=== PATIENT | female | born 1975 | race Caucasian/White ===

== ENCOUNTER 2018-03-22 22:54 | Emergency (ER) | payer MEDICAID ==
--- NOTE | 2018-03-22 23:28 | ED Physician Documentation ---
PD HPI MHE - Stated complaint Stated Complaint: SUICIDAL - Chief complaint Chief Complaint: MHE - History obtained from History obtained from: Patient - History of Present Illness Primary symptom: Suicidal ideation, Depression, Anxiety, Off meds Timing - onset: Today Contributing factors: Off meds Similar symptoms before: Work up / diagnostics, Treatment Recently seen: Not recently seen - Additional information Additional information: Patient is a 43 year female with a history of anxiety and depression who is presenting to the emergency for depression and agitation. Patient is visting her mother from out of state and quit taking all of her medications 4 days ago cold turkey. Patient states that she feels agitated an unsafe and does not know what she would do to herself. Review of Systems Ten Systems: 10 systems reviewed and negative Psychiatric: reports: Depressed, Suicidal, Hallucinations, Anxiety PD PAST MEDICAL HISTORY - Present Medications Home Medications: Ambulatory Orders Medication Instructions Recorded Confirmed Aripiprazole [Abilify] 20 mg PO DAILY 03/22/18 03/22/18 Fluoxetine HCl 40 mg PO DAILY 03/22/18 03/22/18 [place] Carbonate 300 mg PO QDBREAKFAST 03/22/18 03/22/18 [place] Carbonate 600 mg PO QPM 03/22/18 03/22/18 Topiramate [Topamax] 25 mg PO BID 03/22/18 03/22/18 buPROPion [Wellbutrin Sr] 100 mg PO DAILY 03/22/18 03/22/18 cloNIDine [Catapres] 1 tab PO DAILY 03/22/18 03/22/18 traZODone [Desyrel] 50 mg PO HS 03/22/18 03/22/18 Prazosin HCl 1 mg PO DAILY PM #14 capsule 03/23/18 - Allergies Allergies/Adverse Reactions: Allergies Allergy/AdvReac Type Severity Reaction Status Date / Time No Known Drug Allergies Allergy Verified 03/22/18 23:02 PD ED PE NORMAL - Vitals Vital signs reviewed: Yes - General General: Alert and oriented X 3, Well developed/nourished - HEENT HEENT: Atraumatic, PERRL - Cardiac Cardiac: RRR - Respiratory Respiratory: No respiratory distress - Abdomen Abdomen: Non distended - Derm Derm: Normal color, Warm and dry - Extremities Extremities: No deformity - Neuro Neuro: Alert and oriented X 3, No motor deficit, Normal speech Eye Opening: Spontaneous Motor: Obeys Commands PD ED PE EXPANDED - Psych Psych: Depressed, Suicidal, Anxious Results - Vitals Vitals: Vital Signs - 24 hr 03/22/18 22:56 Temperature 36.7 C Heart Rate 69 Respiratory 20 Rate Blood Pressure 133/77 H O2 Saturation 98 Oxygen O2 Source Room air - Labs Labs: Laboratory Tests 03/22/18 03/22/18 03/22/18 23:13 23:13 23:46 WBC 7.1 RBC 3.84 L Hgb 12.1 Hct 36.2 L MCV 94.3 MCH 31.6 H MCHC 33.6 RDW 15.2 H Plt Count 292 MPV 7.7 L Neut # (Auto) 3.6 Lymph # (Auto) 2.5 [place] # (Auto) 0.6 Eos # (Auto) 0.3 Baso # (Auto) 0.0 Absolute Nucleated RBC 0.00 Nucleated RBC % 0.0 Sodium Potassium Chloride Carbon Dioxide Anion Gap BUN Creatinine Estimated GFR (MDRD) Glucose Calcium Total Bilirubin AST ALT Alkaline Phosphatase Total Protein Albumin Globulin Albumin/Globulin Ratio Lipase TSH Urine Color YELLOW Urine Clarity CLEAR Urine pH 5.5 Ur Specific [place] >=1.030 H Urine Protein NEGATIVE Urine Glucose (UA) NEGATIVE Urine Ketones NEGATIVE Urine Occult Blood TRACE-LYSE Urine Nitrite NEGATIVE Urine Bilirubin NEGATIVE Urine Urobilinogen 0.2 (NORMAL) Ur Leukocyte Esterase NEGATIVE Ur Microscopic Review NOT INDICATED Urine Culture Comments NOT INDICATED Urine HCG, Qual NEGATIVE Urine Opiates Screen NEGATIVE Ur Oxycodone Screen NEGATIVE Urine Methadone Screen NEGATIVE Ur Propoxyphene Screen NEGATIVE Ur Barbiturates Screen NEGATIVE Ur Tricyclics Screen NEGATIVE Ur Phencyclidine Scrn NEGATIVE Ur Amphetamine Screen NEGATIVE U Methamphetamines Scrn NEGATIVE U Benzodiazepines Scrn NEGATIVE [place] Urine Cocaine Screen NEGATIVE U Cannabinoids Screen NEGATIVE Ethyl Alcohol 03/22/18 03/22/18 03/22/18 23:46 23:46 23:46 WBC RBC Hgb Hct MCV MCH MCHC RDW Plt Count MPV Neut # (Auto) Lymph # (Auto) [place] # (Auto) Eos # (Auto) Baso # (Auto) Absolute Nucleated RBC Nucleated RBC % Sodium 137 Potassium 4.0 Chloride 106 Carbon Dioxide 24 Anion Gap 7.0 BUN 21 H Creatinine 0.8 Estimated GFR (MDRD) 79 L Glucose 123 H Calcium 8.9 Total Bilirubin 0.2 AST 19 ALT 19 Alkaline Phosphatase 35 L Total Protein 5.8 L Albumin 3.5 Globulin 2.3 Albumin/Globulin Ratio 1.5 Lipase 31 TSH 3.45 Urine Color Urine Clarity Urine pH Ur Specific [place] Urine Protein Urine Glucose (UA) Urine Ketones Urine Occult Blood Urine Nitrite Urine Bilirubin Urine Urobilinogen Ur Leukocyte Esterase Ur Microscopic Review Urine Culture Comments Urine HCG, Qual Urine Opiates Screen Ur Oxycodone Screen Urine Methadone Screen Ur Propoxyphene Screen Ur Barbiturates Screen Ur Tricyclics Screen Ur Phencyclidine Scrn Ur Amphetamine Screen U Methamphetamines Scrn U Benzodiazepines Scrn [place] < 0.05 Urine Cocaine Screen U Cannabinoids Screen Ethyl Alcohol < 5.0 PD MEDICAL DECISION MAKING - ED course Complexity details: reviewed old records, reviewed results, re-evaluated patient , considered differential, d/w patient, d/w integrity consultant ED course: Patient was seen and examined at bedside. labs were drawn and urine was collected. telepsych consult was ordered. patient was evaluated by Dr. Spencer who recommended that the patient be admitted inpatient and to change the dosing of the medications to lithium 300 qam and 600qhs, Prozac 20mg, abilfy 15mgqe and prazosin 1mg qhs and stopping the clonidine and trazadone. Patient was otherwise medically clear. Patient was voluntary and was signed over to Dr. Jewell pending social work evaluation. - Sepsis Event Vital Signs: Vital Signs - 24 hr 03/22/18 22:56 Temperature 36.7 C Heart Rate 69 Respiratory 20 Rate Blood Pressure 133/77 H O2 Saturation 98 Oxygen O2 Source Room air Departure - Departure Clinical Impression: Bipolar affective, manic, unspec, Suicidal ideation, Borderline personality disorder Condition: Stable Prescriptions: Prazosin HCl 1 mg PO DAILY PM #14 capsule
[2018-03-22 23:31] LABS: MUDS CUTOFF CONCENTRATIONS CUTOFF CONC BELOW:
[2018-03-22 23:40] LABS: BILIRUBIN,URINE NEGATIVE (NEGATIVE); GLUCOSE, URINE (UA) NEGATIVE (NEGATIVE); KETONES,URINE (UA) NEGATIVE (NEGATIVE); LEUKOCYTE ESTERASE, URINE NEGATIVE (NEGATIVE); NITRITE,URINE NEGATIVE (NEGATIVE); OCCULT BLOOD,URINE TRACE-LYSE (NEGATIVE); PH,URINE 5.5 PH (5.0-7.5); PROTEIN,URINE NEGATIVE (NEGATIVE); UROBILINOGEN,URINE 0.2 (NORMAL) E.U./dL (NORMAL)
[2018-03-22 23:47] LABS: CLARITY,URINE CLEAR (CLEAR); HCG UR QUAL NEGATIVE
[2018-03-22 23:56] LABS: BASOPHILS % (AUTO) 0.7 %; EOSINOPHILS # (AUTO) 0.3 10^3/uL (0.0-0.7); EOSINOPHILS % (AUTO) 4.9 %; HGB - HEMOGLOBIN 12.1 g/dL (12.0-16.0); LYMPHOCYTES # (AUTO) 2.5 10^3/uL (1.5-3.5); LYMPHOCYTES % (AUTO) 35.7 %; MEAN CORPUSCULAR HEMOGLOBIN 31.6 pg (27.0-31.0); MEAN CORPUSCULAR HGB CONC 33.6 g/dL (32.0-36.0); MEAN CORPUSCULAR VOLUME 94.3 fL (81.0-99.0); MEAN PLATELET VOLUME 7.7 fL (7.9-10.8); MONOCYTES # (AUTO) 0.6 10^3/uL (0.0-1.0); MONOCYTES % (AUTO) 8.3 %; NEUTROPHILS # (AUTO) 3.6 10^3/uL (1.5-6.6); NEUTROPHILS % (AUTO) 50.4 %; PLT - PLATELET COUNT 292 10^3/uL (130-450); RED BLOOD COUNT 3.84 10^6/uL (4.20-5.40); RED CELL DISTRIBUTION WIDTH 15.2 % (12.0-15.0); WHITE BLOOD COUNT 7.1 x10^3/uL (4.8-10.8)
[2018-03-23] LABS: AMPHETAMINE SCREEN,URINE NEGATIVE (NEGATIVE); BENZODIAZEPINES SCREEN, URINE NEGATIVE (NEGATIVE); COCAINE SCREEN URINE NEGATIVE (NEGATIVE); METHADONE SCREEN, URINE NEGATIVE (NEGATIVE); METHAMPHETAMINES SCREEN, URINE NEGATIVE (NEGATIVE); OPIATE SCREEN, URINE NEGATIVE (NEGATIVE); OXYCODONE SCREEN, URINE NEGATIVE (NEGATIVE); PROPOXYPHENE SCREEN, URINE NEGATIVE (NEGATIVE); TRICYCLIC ANTIDEPRESSANT,URINE NEGATIVE (NEGATIVE)
[2018-03-23 00:09] LABS: ALBUMIN 3.5 g/dL (3.2-5.5); ALBUMIN/GLOBULIN RATIO 1.5 (1.0-2.2); ALKALINE PHOSPHATASE 35 IU/L (42-121); ALT ALANINE AMINOTRANSFERASE 19 IU/L (10-60); AST ASPARTATE AMINOTRANSFERASE 19 IU/L (10-42); BILIRUBIN,TOTAL 0.2 mg/dL (0.2-1.0); BUN - BLOOD UREA NITROGEN 21 mg/dL (6-20); CALCIUM 8.9 mg/dL (8.5-10.3); CARBON DIOXIDE - CO2 24 mmol/L (21-32); CHLORIDE 106 mmol/L (101-111); CREATININE 0.8 mg/dL (0.4-1.0); GFR - MDRD 79 (>89); GLUCOSE 123 mg/dL (70-100); LIPASE 31 U/L (22-51); SODIUM 137 mmol/L (135-145); TOTAL PROTEIN 5.8 g/dL (6.7-8.2)
[2018-03-23 00:48] LABS: LITHIUM < 0.05 mmol/L
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
[2018-03-23] MEDS ORDERED: LORazepam 0.5 MG TABLET PO STA (02:58)
[2018-03-23 07:41] VITALS: BP 111/77
--- NOTE | 2018-03-23 12:15 | ED Physician Documentation ---
ED Addendum - Addendum Addendum: 03/23/18 12:15 Assumed care at change of shift. The patient did not have any particular complaints new from the prior evaluation. Social work saw her and was able to arrange hospitalization for the patient. The patient is agreeable to this. [facility] will come to transfer the patient. [facility] said they could not take her prior to 4 PM.
== END 2018-03-23 16:22 ==
LOC: ED 22:54
DX: F30.9 Manic episode, unspecified (principal); R45.851 Suicidal ideations; F60.3 Borderline personality disorder; F43.10 Post-traumatic stress disorder, unspecified; F19.11 Other psychoactive substance abuse, in remission; Z81.8 Family history of other mental and behavioral disorders
CPT/HCPCS: 36415; 80053; 80178; 80306; 80320; 81003; 81025; 83690; 84443; 85025; 99284; 99285; A9270; G0426; Q3014; 81001; 87086; 99283

== ENCOUNTER 2018-06-30 07:36 | Emergency (ER) | payer MEDICAID ==
[2018-06-30 08:08] VITALS: BP 132/89
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
--- NOTE | 2018-06-30 08:21 | ED Physician Documentation ---
PD HPI MHE - Stated complaint Stated Complaint: SHAKING/CANT SLEEP - Chief complaint Chief Complaint: General - History obtained from History obtained from: Patient, Friend - History of Present Illness Primary symptom: Manic Timing - onset: How many weeks ago (1) Contributing factors: Family Similar symptoms before: Diagnosis (yariel) Recently seen: Not recently seen - Additional information Additional information: 43-year-old female with a history of bipolar affect disorder has acute yariel over the past week. She has been able to sleep she has racing thoughts and she denies any current suicidal ideation. She has been hospitalized more than 10 times previously and she has recently completed inpatient alcohol treatment and she states she is 2 months sober. She is living with a family friend for the past 2 weeks and he indicates that she had a bit of a rough night last night being awake all night. He does not think that she has had any problems prior to that that he is aware of. The patient states that she was supposed to go back to [place] to home to see her children ages 9 and 20 and she was unable to do this as she was "too spun up ". She denies any current alcohol use states that previously she has had an issue with cocaine as well. Review of Systems Constitutional: denies: Fever Eyes: denies: Decreased vision Ears: denies: Ear pain Nose: denies: Congestion Throat: denies: Oral lesions / sores, Sore throat Cardiac: denies: Chest pain / pressure, Palpitations Respiratory: denies: Dyspnea, Cough GI: denies: Abdominal Pain, Nausea, Vomiting : denies: Dysuria, Frequency Skin: denies: Rash Musculoskeletal: denies: Neck pain, Back pain, Extremity pain Neurologic: denies: Generalized weakness, Focal weakness, Numbness, Difficulty speaking Psychiatric: reports: Insomnia PD PAST MEDICAL HISTORY - Past Medical History Cardiovascular: None Respiratory: None Neuro: Migraines Endocrine/Autoimmune: None GI: None 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 : None HEENT: None Psych: Depression, Anxiety, Bipolar disorder, Panic attacks Musculoskeletal: None Derm: None - Past Surgical History Past Surgical History: No - Present Medications Home Medications: Ambulatory Orders Medication Instructions Recorded Confirmed Aripiprazole [Abilify] 20 mg PO DAILY 03/22/18 06/30/18 RX: Fluoxetine HCl 20 mg PO DAILY 03/22/18 06/30/18 RX: [place] Carbonate 300 mg PO QDBREAKFAST 03/22/18 06/30/18 RX: [place] Carbonate 600 mg PO QPM 03/22/18 06/30/18 RX: QUEtiapine [SEROquel] 25 mg DAILY 06/30/18 06/30/18 hydrOXYzine HCl [Hydroxyzine HCl] 1 tab TID PRN 06/30/18 06/30/18 - Allergies Allergies/Adverse Reactions: Allergies Allergy/AdvReac Type Severity Reaction Status Date / Time No Known Drug Allergies Allergy Verified 06/30/18 08:07 - Social History Does the pt smoke?: Yes Smoking Status: Current every day smoker Does the pt drink ETOH?: No Does the pt have substance abuse?: Yes - Immunizations Immunizations are current?: Yes - POLST Patient has POLST: No PD ED PE NORMAL - Vitals Vital signs reviewed: Yes (diastolic hypertension ) - General General: Alert and oriented X 3, No acute distress, Well developed/nourished - HEENT HEENT: Atraumatic, PERRL, EOMI, Ears normal, Moist mucous membranes, Pharynx benign, Dentition benign - Neck Neck: Supple, no meningeal sign, No bony TTP - Cardiac Cardiac: RRR, No murmur - Respiratory Respiratory: No respiratory distress, Clear bilaterally - Abdomen Abdomen: Soft, Non tender - Back Back: No CVA TTP, No spinal TTP - Derm Derm: Normal color, Warm and dry, No rash - Extremities Extremities: No deformity, No edema - Neuro Neuro: Alert and oriented X 3, events traffic controller 2-12 intact, No motor deficit, No sensory deficit, Normal speech Eye Opening: Spontaneous Motor: Obeys Commands Verbal: Oriented GCS Score: 15 - Psych Psych: Normal mood, Normal affect Results - Vitals Vitals: Vital Signs - 24 hr 06/30/18 08:00 Temperature 36.3 C L Heart Rate 86 Respiratory 16 Rate Blood Pressure 132/89 H O2 Saturation 100 Oxygen O2 Source Room air - Labs Labs: Laboratory Tests 06/30/18 06/30/18 06/30/18 08:43 08:43 08:43 WBC 7.9 RBC 4.36 Hgb 13.5 Hct 39.8 MCV 91.3 MCH 31.1 H MCHC 34.1 RDW 14.8 Plt Count 343 MPV 7.8 L Neut # (Auto) 5.2 Lymph # (Auto) 1.9 [place] # (Auto) 0.5 Eos # (Auto) 0.3 Baso # (Auto) 0.1 Absolute Nucleated RBC 0.00 Nucleated RBC % 0.0 Sodium 137 Potassium 3.9 Chloride 104 Carbon Dioxide 25 Anion Gap 8.0 BUN 10 Creatinine 0.9 Estimated GFR (MDRD) 69 L Glucose 99 Calcium 9.4 Total Bilirubin 0.4 AST 19 ALT 15 Alkaline Phosphatase 36 L Total Protein 7.6 Albumin 4.4 Globulin 3.2 Albumin/Globulin Ratio 1.4 Lipase 33 TSH 3.66 Urine Color Urine Clarity Urine pH Ur Specific [place] Urine Protein Urine Glucose (UA) Urine Ketones Urine Occult Blood Urine Nitrite Urine Bilirubin Urine Urobilinogen Ur Leukocyte Esterase Ur Microscopic Review Urine Culture Comments Urine HCG, Qual Urine Opiates Screen Ur Oxycodone Screen Urine Methadone Screen Ur Propoxyphene Screen Ur Barbiturates Screen Ur Tricyclics Screen Ur Phencyclidine Scrn Ur Amphetamine Screen U Methamphetamines Scrn U Benzodiazepines Scrn Urine Cocaine Screen U Cannabinoids Screen Ethyl Alcohol < 5.0 06/30/18 06/30/18 09:30 09:30 WBC RBC Hgb Hct MCV MCH MCHC RDW Plt Count MPV Neut # (Auto) Lymph # (Auto) [place] # (Auto) Eos # (Auto) Baso # (Auto) Absolute Nucleated RBC Nucleated RBC % Sodium Potassium Chloride Carbon Dioxide Anion Gap BUN Creatinine Estimated GFR (MDRD) Glucose Calcium Total Bilirubin AST ALT Alkaline Phosphatase Total Protein Albumin Globulin Albumin/Globulin Ratio Lipase TSH Urine Color LIGHT YELLOW Urine Clarity CLEAR Urine pH 7.0 Ur Specific [place] <=1.005 Urine Protein NEGATIVE Urine Glucose (UA) NEGATIVE Urine Ketones NEGATIVE Urine Occult Blood NEGATIVE Urine Nitrite NEGATIVE Urine Bilirubin NEGATIVE Urine Urobilinogen 0.2 (NORMAL) Ur Leukocyte Esterase NEGATIVE Ur Microscopic Review NOT INDICATED Urine Culture Comments NOT INDICATED Urine HCG, Qual NEGATIVE Urine Opiates Screen NEGATIVE Ur Oxycodone Screen NEGATIVE Urine Methadone Screen NEGATIVE Ur Propoxyphene Screen NEGATIVE Ur Barbiturates Screen NEGATIVE Ur Tricyclics Screen NEGATIVE Ur Phencyclidine Scrn NEGATIVE Ur Amphetamine Screen NEGATIVE U Methamphetamines Scrn NEGATIVE U Benzodiazepines Scrn NEGATIVE Urine Cocaine Screen NEGATIVE U Cannabinoids Screen NEGATIVE Ethyl Alcohol PD MEDICAL DECISION MAKING - ED course Complexity details: considered differential ED course: This patient eloped without explanation. Departure - Departure Disposition: ED [place] Discharge Date/Time: 06/30/18 09:44
[2018-06-30 08:50] LABS: BASOPHILS # (AUTO) 0.1 10^3/uL (0.0-0.1); BASOPHILS % (AUTO) 0.8 %; EOSINOPHILS # (AUTO) 0.3 10^3/uL (0.0-0.7); EOSINOPHILS % (AUTO) 3.6 %; HGB - HEMOGLOBIN 13.5 g/dL (12.0-16.0); LYMPHOCYTES # (AUTO) 1.9 10^3/uL (1.5-3.5); MEAN CORPUSCULAR HEMOGLOBIN 31.1 pg (27.0-31.0); MEAN CORPUSCULAR HGB CONC 34.1 g/dL (32.0-36.0); MEAN CORPUSCULAR VOLUME 91.3 fL (81.0-99.0); MEAN PLATELET VOLUME 7.8 fL (7.9-10.8); MONOCYTES # (AUTO) 0.5 10^3/uL (0.0-1.0); MONOCYTES % (AUTO) 5.8 %; NEUTROPHILS # (AUTO) 5.2 10^3/uL (1.5-6.6); NEUTROPHILS % (AUTO) 65.8 %; PLT - PLATELET COUNT 343 10^3/uL (130-450); RED BLOOD COUNT 4.36 10^6/uL (4.20-5.40); RED CELL DISTRIBUTION WIDTH 14.8 % (12.0-15.0); WHITE BLOOD COUNT 7.9 x10^3/uL (4.8-10.8)
[2018-06-30 09:04] LABS: ALBUMIN 4.4 g/dL (3.2-5.5); ALBUMIN/GLOBULIN RATIO 1.4 (1.0-2.2); ALKALINE PHOSPHATASE 36 IU/L (42-121); ALT ALANINE AMINOTRANSFERASE 15 IU/L (10-60); AST ASPARTATE AMINOTRANSFERASE 19 IU/L (10-42); BILIRUBIN,TOTAL 0.4 mg/dL (0.2-1.0); BUN - BLOOD UREA NITROGEN 10 mg/dL (6-20); CALCIUM 9.4 mg/dL (8.5-10.3); CARBON DIOXIDE - CO2 25 mmol/L (21-32); CHLORIDE 104 mmol/L (101-111); CREATININE 0.9 mg/dL (0.4-1.0); GFR - MDRD 69 (>89); GLUCOSE 99 mg/dL (70-100); LIPASE 33 U/L (22-51); SODIUM 137 mmol/L (135-145); TOTAL PROTEIN 7.6 g/dL (6.7-8.2)
[2018-06-30 09:49] LABS: MUDS CUTOFF CONCENTRATIONS CUTOFF CONC BELOW:
[2018-06-30 09:51] LABS: BILIRUBIN,URINE NEGATIVE (NEGATIVE); GLUCOSE, URINE (UA) NEGATIVE (NEGATIVE); KETONES,URINE (UA) NEGATIVE (NEGATIVE); LEUKOCYTE ESTERASE, URINE NEGATIVE (NEGATIVE); NITRITE,URINE NEGATIVE (NEGATIVE); OCCULT BLOOD,URINE NEGATIVE (NEGATIVE); PROTEIN,URINE NEGATIVE (NEGATIVE); UROBILINOGEN,URINE 0.2 (NORMAL) E.U./dL (NORMAL)
[2018-06-30 09:53] LABS: CLARITY,URINE CLEAR (CLEAR); HCG UR QUAL NEGATIVE
[2018-06-30 10:02] LABS: AMPHETAMINE SCREEN,URINE NEGATIVE (NEGATIVE); BENZODIAZEPINES SCREEN, URINE NEGATIVE (NEGATIVE); COCAINE SCREEN URINE NEGATIVE (NEGATIVE); METHADONE SCREEN, URINE NEGATIVE (NEGATIVE); METHAMPHETAMINES SCREEN, URINE NEGATIVE (NEGATIVE); OPIATE SCREEN, URINE NEGATIVE (NEGATIVE); OXYCODONE SCREEN, URINE NEGATIVE (NEGATIVE); PROPOXYPHENE SCREEN, URINE NEGATIVE (NEGATIVE); TRICYCLIC ANTIDEPRESSANT,URINE NEGATIVE (NEGATIVE)
== END 2018-06-30 09:44 | disposition left against medical advice (07) ==
LOC: ED 07:36
DX: F31.9 Bipolar disorder, unspecified (principal); G47.00 Insomnia, unspecified; F17.200 Nicotine dependence, unspecified, uncomplicated
CPT/HCPCS: 36415; 80053; 80306; 80320; 81001; 81003; 81025; 83690; 84443; 85025; 87086; 99282; 99283

== ENCOUNTER 2019-06-04 17:27 | Outpatient (CLI) | payer MEDICARE, MEDICAID | END 2019-06-04 23:59 | disposition home or self-care (01) | LOC: LAB.R 17:27 | PROVIDERS: ATTEND Physician Assistant Medical | DX: J02.9 Acute pharyngitis, unspecified (principal) | CPT/HCPCS: 87070 ==

== ENCOUNTER 2019-06-11 08:00 | Outpatient (CLI) | payer MEDICARE, MEDICAID | END 2019-06-11 23:59 | disposition home or self-care (01) | LOC: LAB.WC 08:00 | PROVIDERS: ATTEND Obstetrics & Gynecology | DX: Z53.9 Procedure and treatment not carried out, unspecified reason (principal) ==

== ENCOUNTER 2020-04-28 08:00 | Outpatient (CLI) | payer MEDICARE, MEDICAID ==
[2020-04-28 15:43] LABS: BASOPHILS # (AUTO) 0.1 10^3/uL (0.0-0.1); BASOPHILS % (AUTO) 0.6 %; EOSINOPHILS # (AUTO) 0.4 10^3/uL (0.0-0.7); EOSINOPHILS % (AUTO) 3.6 %; HGB - HEMOGLOBIN 13.7 g/dL (12.0-16.0); LYMPHOCYTES # (AUTO) 2.4 10^3/uL (1.5-3.5); LYMPHOCYTES % (AUTO) 21.5 %; MEAN CORPUSCULAR HEMOGLOBIN 30.8 pg (27.0-31.0); MEAN CORPUSCULAR HGB CONC 31.9 g/dL (32.0-36.0); MEAN CORPUSCULAR VOLUME 96.6 fL (81.0-99.0); MEAN PLATELET VOLUME 10.7 fL (7.9-10.8); MONOCYTES # (AUTO) 0.6 10^3/uL (0.0-1.0); MONOCYTES % (AUTO) 5.6 %; NEUTROPHILS # (AUTO) 7.7 10^3/uL (1.5-6.6); NEUTROPHILS % (AUTO) 68.3 %; PLT - PLATELET COUNT 374 10^3/uL (130-450); RED BLOOD COUNT 4.45 10^6/uL (4.20-5.40); RED CELL DISTRIBUTION WIDTH 15.9 % (12.0-15.0); WHITE BLOOD COUNT 11.3 x10^3/uL (4.8-10.8)
[2020-04-28 15:44] LABS: LITHIUM 0.96 mmol/L
[2020-04-28 15:45] LABS: ALBUMIN 3.7 g/dL (3.2-5.5); ALBUMIN/GLOBULIN RATIO 1.3 (1.0-2.2); BILIRUBIN,TOTAL 0.4 mg/dL (0.2-1.0); CALCIUM 9.5 mg/dL (8.5-10.3); CREATININE 0.7 mg/dL (0.4-1.0); TOTAL PROTEIN 6.6 g/dL (6.7-8.2)
== END 2020-04-28 23:59 | disposition home or self-care (01) ==
LOC: LAB.S 08:00
PROVIDERS: ATTEND Emergency Medicine
DX: R19.7 Diarrhea, unspecified (principal); Z79.899 Other long term (current) drug therapy
CPT/HCPCS: 36415; 80053; 80178; 85025

== ENCOUNTER 2021-02-22 08:39 | Outpatient (CLI) | payer MEDICARE, MEDICAID ==
[2021-02-22 14:43] LABS: BASOPHILS # (AUTO) 0.1 10^3/uL (0.0-0.1); BASOPHILS % (AUTO) 0.8 %; EOSINOPHILS # (AUTO) 0.6 10^3/uL (0.0-0.7); EOSINOPHILS % (AUTO) 5.4 %; HCT - HEMATOCRIT 43.5 % (37.0-47.0); HGB - HEMOGLOBIN 13.9 g/dL (12.0-16.0); LYMPHOCYTES # (AUTO) 2.3 10^3/uL (1.5-3.5); LYMPHOCYTES % (AUTO) 22.3 %; MEAN CORPUSCULAR HEMOGLOBIN 30.5 pg (27.0-31.0); MEAN CORPUSCULAR VOLUME 95.6 fL (81.0-99.0); MEAN PLATELET VOLUME 10.3 fL (7.9-10.8); MONOCYTES # (AUTO) 0.6 10^3/uL (0.0-1.0); MONOCYTES % (AUTO) 6.1 %; NEUTROPHILS # (AUTO) 6.7 10^3/uL (1.5-6.6); PLT - PLATELET COUNT 391 10^3/uL (130-450); RED BLOOD COUNT 4.55 10^6/uL (4.20-5.40); RED CELL DISTRIBUTION WIDTH 15.9 % (12.0-15.0); WHITE BLOOD COUNT 10.3 x10^3/uL (4.8-10.8)
[2021-02-22 15:12] LABS: LITHIUM 0.72 mmol/L
[2021-02-22 15:14] LABS: ALBUMIN 3.8 g/dL (3.2-5.5); ALBUMIN/GLOBULIN RATIO 1.4 (1.0-2.2); ALKALINE PHOSPHATASE 38 IU/L (42-121); ALT ALANINE AMINOTRANSFERASE 14 IU/L (10-60); AST ASPARTATE AMINOTRANSFERASE 13 IU/L (10-42); BILIRUBIN,TOTAL 0.5 mg/dL (0.2-1.0); BUN - BLOOD UREA NITROGEN 15 mg/dL (6-20); CARBON DIOXIDE - CO2 20 mmol/L (21-32); CHLORIDE 106 mmol/L (101-111); CHOL/HDL RATIO 4.9 (<4.4); CHOLESTEROL 258 mg/dL; CREATININE 0.8 mg/dL (0.4-1.0); GFR - MDRD 78 (>89); GLUCOSE 92 mg/dL (70-100); HDL CHOLESTEROL 53 mg/dL; LDL CHOLESTEROL,CALCULATED 177 mg/dL; LDL/HDL RATIO 3.3 (<4.4); POTASSIUM 4.2 mmol/L (3.5-5.0); SODIUM 134 mmol/L (135-145); TOTAL PROTEIN 6.5 g/dL (6.7-8.2); TRIGLYCERIDES 140 mg/dL; VLDL CHOLESTEROL 28 mg/dL
[2021-02-22 15:19] LABS: THYROID STIMULATING HORMONE 3.5 uIU/mL (0.34-5.60)
== END 2021-02-22 08:40 | disposition home or self-care (01) ==
LOC: LAB.S 08:39
PROVIDERS: ATTEND Physician Assistant
DX: R19.7 Diarrhea, unspecified (principal); Z79.899 Other long term (current) drug therapy; F10.10 Alcohol abuse, uncomplicated; Z13.220 Encounter for screening for lipoid disorders; Z51.81 Encounter for therapeutic drug level monitoring; F31.81 Bipolar II disorder; F41.9 Anxiety disorder, unspecified
CPT/HCPCS: 36415; 80053; 80061; 80178; 82306; 83721; 84443; 85025

== ENCOUNTER 2021-02-24 08:00 | Outpatient (CLI) | payer MEDICARE, MEDICAID ==
[2021-02-24 16:08] LABS: BILIRUBIN,URINE NEGATIVE (NEGATIVE); GLUCOSE, URINE (UA) NEGATIVE (NEGATIVE); KETONES,URINE (UA) NEGATIVE (NEGATIVE); LEUKOCYTE ESTERASE, URINE NEGATIVE (NEGATIVE); NITRITE,URINE NEGATIVE (NEGATIVE); OCCULT BLOOD,URINE NEGATIVE (NEGATIVE); PH,URINE 6.5 PH (5.0-7.5); PROTEIN,URINE NEGATIVE (NEGATIVE); UROBILINOGEN,URINE 0.2 (NORMAL) E.U./dL (NORMAL)
[2021-02-24 16:12] LABS: CLARITY,URINE CLEAR (CLEAR)
== END 2021-02-24 23:59 | disposition home or self-care (01) ==
LOC: LAB.S 08:00
PROVIDERS: ATTEND Emergency Medicine
DX: R30.0 Dysuria (principal)
CPT/HCPCS: 81001; 81003; 87086

== ENCOUNTER 2022-04-12 07:53 | Outpatient (CLI) | payer MEDICARE, MEDICAID ==
[2022-04-12 14:52] LABS: BASOPHILS # (AUTO) 0.1 10^3/uL (0.0-0.1); BASOPHILS % (AUTO) 0.6 %; EOSINOPHILS # (AUTO) 0.4 10^3/uL (0.0-0.7); HCT - HEMATOCRIT 41.8 % (37.0-47.0); HGB - HEMOGLOBIN 13.5 g/dL (12.0-16.0); LYMPHOCYTES # (AUTO) 2.7 10^3/uL (1.5-3.5); LYMPHOCYTES % (AUTO) 25.7 %; MEAN CORPUSCULAR HEMOGLOBIN 30.6 pg (27.0-31.0); MEAN CORPUSCULAR HGB CONC 32.3 g/dL (32.0-36.0); MEAN CORPUSCULAR VOLUME 94.8 fL (81.0-99.0); MEAN PLATELET VOLUME 10.6 fL (7.9-10.8); MONOCYTES # (AUTO) 0.7 10^3/uL (0.0-1.0); MONOCYTES % (AUTO) 6.4 %; NEUTROPHILS # (AUTO) 6.6 10^3/uL (1.5-6.6); PLT - PLATELET COUNT 404 10^3/uL (130-450); RED BLOOD COUNT 4.41 10^6/uL (4.20-5.40); RED CELL DISTRIBUTION WIDTH 16.1 % (12.0-15.0); WHITE BLOOD COUNT 10.5 x10^3/uL (4.8-10.8)
[2022-04-12 15:22] LABS: ALBUMIN 3.5 g/dL (3.2-5.5); ALBUMIN/GLOBULIN RATIO 1.3 (1.0-2.2); ALKALINE PHOSPHATASE 40 IU/L (42-121); ALT ALANINE AMINOTRANSFERASE 19 IU/L (10-60); AST ASPARTATE AMINOTRANSFERASE 17 IU/L (10-42); BILIRUBIN,TOTAL 0.4 mg/dL (0.2-1.0); BUN - BLOOD UREA NITROGEN 11 mg/dL (6-20); CALCIUM 9.1 mg/dL (8.5-10.3); CARBON DIOXIDE - CO2 22 mmol/L (21-32); CHLORIDE 111 mmol/L (101-111); CHOL/HDL RATIO 6.6 (<4.4); CHOLESTEROL 256 mg/dL; CREATININE 0.8 mg/dL (0.4-1.0); GFR - MDRD 78 (>89); GLUCOSE 90 mg/dL (70-100); HDL CHOLESTEROL 39 mg/dL; LDL CHOLESTEROL,CALCULATED 195 mg/dL; POTASSIUM 4.2 mmol/L (3.5-5.0); SODIUM 136 mmol/L (135-145); TOTAL PROTEIN 6.3 g/dL (6.7-8.2); TRIGLYCERIDES 112 mg/dL; VLDL CHOLESTEROL 22 mg/dL
[2022-04-12 15:32] LABS: THYROID STIMULATING HORMONE 2.92 uIU/mL (0.34-5.60)
== END 2022-04-12 07:54 | disposition home or self-care (01) ==
LOC: LAB.S 07:53
PROVIDERS: ATTEND Registered Nurse
DX: Z79.899 Other long term (current) drug therapy (principal); Z13.29 Encounter for screening for other suspected endocrine disorder
CPT/HCPCS: 36415; 80053; 80061; 80178; 82306; 83721; 84443; 85025

== ENCOUNTER 2022-05-29 08:00 | Outpatient (CLI) | payer MEDICARE, MEDICAID | END 2022-05-29 23:59 | disposition home or self-care (01) | LOC: LAB.S 08:00 | PROVIDERS: ATTEND Physician Assistant Medical | DX: J02.9 Acute pharyngitis, unspecified (principal) | CPT/HCPCS: 87070 ==

== ENCOUNTER 2022-06-06 15:22 | Emergency (ER) | payer MEDICAID, MEDICARE ==
[2022-06-06 15:34] VITALS: BP 143/67
--- NOTE | 2022-06-06 17:08 | ED Physician Documentation ---
History of Present Illness - Stated complaint Stated Complaint: FEVER, CHILLS - Chief complaint Chief Complaint: Fever - Additonal information Additional information: 47-year-old female presents emergency department for constellation of symptoms including headache some nausea body aches fatigue fevers and chills. Symptoms began a number of weeks ago when she had some tooth pain in her right upper molar. I initially saw her during that ED visit where she had been on amoxicillin which had not proven helpful. I transitioned her to Augmentin. She subsequently followed up with a dentist and did have the tooth extracted. She states that the infection got worse after that and she started taking clindamycin now 4 days ago. She states that she has not had any cough. No diarrhea but vomited once today. She called the dentist office and they told her that she may have meningitis thus she presents here. She has not measured a temperature but has felt hot at home. She is vaccinated for COVID Review of Systems Constitutional: reports: Fever, Myalgias, Fatigue Ears: reports: Reviewed and negative Nose: reports: Reviewed and negative Throat: reports: Dental pain / toothache Cardiac: reports: Reviewed and negative Respiratory: reports: Reviewed and negative GI: reports: Vomiting. denies: Constipation, Diarrhea : reports: Reviewed and negative Skin: reports: Reviewed and negative Musculoskeletal: reports: Reviewed and negative PD PAST MEDICAL HISTORY - Past Medical History Cardiovascular: None Respiratory: None Neuro: Migraines Endocrine/Autoimmune: None GI: None PRESIDING JUDGE: None : Incontinence HEENT: None Psych: Depression, Anxiety, Bipolar disorder, Panic attacks Musculoskeletal: None Derm: None - Past Surgical History Past Surgical History: No /PRESIDING JUDGE: section - Present Medications Home Medications: Ambulatory Orders Medication Instructions Recorded Confirmed Fluoxetine HCl 40 mg PO DAILY 03/22/18 02/11/22 hydrOXYzine HCL [Hydroxyzine HCl] 1 tab TID PRN 06/30/18 02/11/22 ARIPiprazole [Abilify Mycite] 30 mg PO DAILY 02/11/22 02/11/22 Acetaminophen [Tylenol] 2 tab PO TID PRN 02/11/22 02/11/22 [place] Carbonate 3 cap PO HS 02/11/22 02/11/22 Quetiapine Fumarate [Seroquel] 100 mg PO MAINTENANCE.IV 02/11/22 02/11/22 Amox/Clav 875/125 [Augmentin] 1 each PO Q12H #20 tablet 05/19/22 HYDROcod/ACETAM 5/325 [[place] 5/325] 1 tab PO BID PRN #8 tablet 05/19/22 - Allergies Allergies/Adverse Reactions: Allergies Allergy/AdvReac Type Severity Reaction Status Date / Time No Known Drug Allergies Allergy Verified 06/06/22 15:33 - Social History Does the pt smoke?: Yes Smoking Status: Current every day smoker Does the pt drink ETOH?: No Does the pt have substance abuse?: Yes - Immunizations Immunizations are current?: Yes - POLST Patient has POLST: No PD ED PE NORMAL - General General: Alert and oriented X 3, No acute distress, Well developed/nourished - HEENT HEENT: Atraumatic, Moist mucous membranes, Pharynx benign - Neck Neck: Supple, no meningeal sign, No adenopathy - Cardiac Cardiac: RRR, No murmur - Respiratory Respiratory: No respiratory distress, Clear bilaterally - Abdomen Abdomen: Normal bowel sounds, Soft, Non tender - Back Back: No CVA TTP, No spinal TTP - Derm Derm: Normal color, Warm and dry - Extremities Extremities: No deformity, No tenderness to palpate, Normal ROM s pain - Neuro Neuro: Alert and oriented X 3, supervisor logging 2-12 intact Eye Opening: Spontaneous Motor: Obeys Commands Verbal: Oriented GCS Score: 15 Results - Vitals Vitals: Vital Signs - 24 hr 06/06/22 15:30 Temperature 36.2 C L Heart Rate 74 Respiratory 20 Rate Blood Pressure 143/67 H O2 Saturation 99 Oxygen O2 Source Room air - Labs Labs: Laboratory Tests 06/06/22 17:27 Nasal Adenovirus (PCR) NOT DETECTED Nasal B. parapertussis DNA (PCR) NOT DETECTED Nasal Coronavir 229E PCR NOT DETECTED Nasal Coronavir HKU1 PCR NOT DETECTED Nasal Coronavir NL63 PCR NOT DETECTED Nasal Coronavir OC43 PCR NOT DETECTED Nasal Enterovir/Rhinovir PCR NOT DETECTED Nasal Influenza B PCR NOT DETECTED Nasal Influenza A PCR NOT DETECTED Nasal Parainfluen 1 PCR NOT DETECTED Nasal Parainfluen 2 PCR NOT DETECTED Nasal Parainfluen 3 PCR NOT DETECTED Nasal Parainfluen 4 PCR NOT DETECTED Nasal RSV (PCR) NOT DETECTED Nasal B.pertussis DNA PCR NOT DETECTED Nasal C.pneumoniae (PCR) NOT DETECTED Otto Human Metapneumo PCR NOT DETECTED Nasal M.pneumoniae (PCR) NOT DETECTED Nasal SARS-CoV-2 (PCR) NOT DETECTED PD MEDICAL DECISION MAKING - ED course Complexity details: considered differential, d/w patient ED course: This is a very well-appearing 47-year-old female that presents emergency department for about 1 week of fevers chills body ache headache. This is in the setting of recent tooth extraction followed by infection for which she has been on clindamycin now 4 days that was previously on amoxicillin and Augmentin. On presentation she appears unremarkable. She is alert and pleasant. She is talkative. I was unable to elicit any meningeal or neck pain symptoms. She has not had any cough. Cardiopulmonary auscultation was unremarkable. No hypoxia. Therefore I deferred a chest x-ray. She has no urinary symptoms and an occult UTI would be very unlikely. Given that she is also been on antibiotics for quite some time which I would expect to be adequate for almost any urinary tract infection. The exam of her ears nose and throat was also negative. I do suspect however that she has a viral illness. We will obtain a PCR. I will notify the patient with any of the positive results. Otherwise she is discharged home in stable condition. We discussed that not all causes of fever are recognized but if not markedly improving her symptoms should worsen she will return immediately to the ER for second evaluation Departure - Departure Disposition: 01 Home, Self Care Clinical Impression: Fatigue Qualifiers: Fatigue type: unspecified Qualified Code(s): R53.83 - Other fatigue Headache Qualifiers: Headache type: unspecified Headache chronicity pattern: unspecified pattern Intractability: not intractable Qualified Code(s): R51.9 - Headache, unspecified Condition: Stable Record reviewed to determine appropriate education?: Yes Comments: Di rainey are seen today in the emergency department because you have had few days of generalized fatigue myalgias headache and fevers. Your vital signs today in the emergency department are not worrisome. When we listen your heart and lungs they sound normal. You do not have any belly pain or urinary symptoms. As we discussed at the bedside I suspect that you likely have a viral illness. We are sending a swab to determine if we can find an obvious virus that could be causing the symptoms. However in general I expect your symptoms to be getting better over the next few days. You can take Tylenol or ibuprofen for any the body aches and fever. Please stay well-hydrated. Its important to get adequate rest. At any point you feel your symptoms are worsening, you have sudden severe headache, difficulty breathing or severe shortness of air then you should return to the ER for a second evaluation. Discharge Date/Time: 06/06/22 17:31
[2022-06-06 18:19] LABS: B. PARAPERTUSSIS- RESP PCR PAN NOT DETECTED; B. PERTUSSIS- RESP PCR PANEL NOT DETECTED; C. PNEUMONIAE- RESP PCR PANEL NOT DETECTED; CORONAVIRUS 229E-RESP PCR NOT DETECTED; CORONAVIRUS HKU1-RESP PCR NOT DETECTED; CORONAVIRUS NL63-RESP PCR NOT DETECTED; CORONAVIRUS OC43-RESP PCR NOT DETECTED; HUMAN METAPNEUMOVIRUS NOT DETECTED; INFLUENZA A- RESP PCR PANEL NOT DETECTED; INFLUENZA B - RESP PCR PANEL NOT DETECTED; M. PNEUMONIAE- RESP PCR PANEL NOT DETECTED; PARAINFLUENZA VIRUS 1 NOT DETECTED; PARAINFLUENZA VIRUS 2 NOT DETECTED; PARAINFLUENZA VIRUS 3 NOT DETECTED; PARAINFLUENZA VIRUS 4 NOT DETECTED; RHINOVIRUS/ENTEROVIRUS NOT DETECTED; RSV- RESP PCR PANEL NOT DETECTED; SARS-CoV-2 -RESP PCR PANEL NOT DETECTED
== END 2022-06-06 17:31 | disposition home or self-care (01) ==
LOC: ED 15:22
DX: R53.83 Other fatigue (principal); R51.9 Headache, unspecified; R11.2 Nausea with vomiting, unspecified; R50.9 Fever, unspecified; M79.10 Myalgia, unspecified site; K08.89 Other specified disorders of teeth and supporting structures; Z98.818 Other dental procedure status; F17.200 Nicotine dependence, unspecified, uncomplicated
CPT/HCPCS: 87633; 99283; 99284

== ENCOUNTER 2022-07-26 07:32 | Emergency (ER) | payer MEDICARE, MEDICAID ==
[2022-07-26 07:57] VITALS: BP 136/71
--- NOTE | 2022-07-26 08:13 | ED Physician Documentation ---
PD HPI MHE - Stated complaint Stated Complaint: AMS/ANXIETY - Chief complaint Chief Complaint: MHE - History obtained from History obtained from: Patient - History of Present Illness Primary symptom: Anxiety, Other (has had stress with her son's mental illness and symptoms he has, and as result, the patient states she started alcohol drinking 3 weeks ago. Wanting to stop now and is concerned about withdrawal (starting to feel some now) and also sleep/anxiety.). No: Suicidal ideation, Depression Timing - onset: How many weeks ago (anxiety and stress 3 weeks ago, with resum ption of alcohol use at that time as well. denies other drugs.) Contributing factors: Family, Substance abuse - ETOH Similar symptoms before: Diagnosis (history of anxiety, and also prior alcohol dependence, with treatment programs previously. had been sober for awhile prior to recent resumption.) Recently seen: Not recently seen Review of Systems Constitutional: denies: Fever, Chills Nose: denies: Rhinorrhea / runny nose, Congestion Throat: denies: Sore throat Cardiac: denies: Chest pain / pressure, Palpitations Respiratory: denies: Dyspnea, Cough GI: reports: Nausea. denies: Abdominal Pain, Vomiting, Diarrhea Neurologic: denies: Near syncope Psychiatric: reports: Anxiety, Insomnia. denies: Suicidal, Homicidal, Hallucinations PD PAST MEDICAL HISTORY - Past Medical History Cardiovascular: None Respiratory: None Neuro: Migraines Endocrine/Autoimmune: None GI: None BANANA HANDLER: None : Incontinence HEENT: None Psych: Depression, Anxiety, Bipolar disorder, Panic attacks Musculoskeletal: None Derm: None - Past Surgical History Past Surgical History: No /BANANA HANDLER: section - Present Medications Home Medications: Ambulatory Orders Medication Instructions Recorded Confirmed Fluoxetine HCl 40 mg PO DAILY 03/22/18 02/11/22 hydrOXYzine HCL [Hydroxyzine HCl] 1 tab TID PRN 06/30/18 02/11/22 ARIPiprazole [Abilify Mycite] 30 mg PO DAILY 02/11/22 02/11/22 Acetaminophen [Tylenol] 2 tab PO TID PRN 02/11/22 02/11/22 [place] Carbonate 3 cap PO HS 02/11/22 02/11/22 Quetiapine Fumarate [Seroquel] 100 mg PO MAINTENANCE.IV 02/11/22 02/11/22 Amox/Clav 875/125 [Augmentin] 1 each PO Q12H #20 tablet 05/19/22 HYDROcod/ACETAM 5/325 [[place] 5/325] 1 tab PO BID PRN #8 tablet 05/19/22 LORazepam [Ativan] 1 mg PO Q6H PRN #20 tablet 07/26/22 PHENobarbitaL [Phenobarbital] 30 mg PO BID 6 Days #9 tablet 07/26/22 - Allergies Allergies/Adverse Reactions: Allergies Allergy/AdvReac Type Severity Reaction Status Date / Time No Known Drug Allergies Allergy Verified 06/06/22 15:33 - Social History Does the pt smoke?: Yes Smoking Status: Current every day smoker Does the pt drink ETOH?: No Does the pt have substance abuse?: Yes - Immunizations Immunizations are current?: Yes - POLST Patient has POLST: No PD ED PE NORMAL - Vitals Vital signs reviewed: Yes - General General: Alert and oriented X 3, No acute distress (pleasant and conversant. openly shares her problem and symptoms. ), Well developed/nourished - HEENT HEENT: EOMI, Pharynx benign - Neck Neck: Supple, no meningeal sign, No adenopathy - Cardiac Cardiac: RRR, No murmur - Respiratory Respiratory: Clear bilaterally - Derm Derm: Normal color, Warm and dry - Extremities Extremities: Normal ROM s pain - Neuro Neuro: Alert and oriented X 3, No motor deficit, Normal speech - Psych Psych: No: Normal mood (anxious and sad about her son. ) Results - Vitals Vitals: Vital Signs - 24 hr 07/26/22 07:48 Temperature 36.7 C Heart Rate 86 Respiratory 20 Rate Blood Pressure 136/71 H O2 Saturation 98 Oxygen O2 Source Room air PD Medical Decision Making - ED course Complexity details: considered differential (the patient drove herself here so did not give any sedating meds here. she is not having significant withdrawal symptoms as yet, and she is comfortable waiting until gets to pharmacy. Chose Phenobarb regimen common for etOH withdrawal, with Ativan PRN as well. this can help with sleep/amxiety too. ), d/w patient Departure - Departure Disposition: 01 Home, Self Care Clinical Impression: Anxiety in acute stress reaction Alcohol withdrawal Qualifiers: Complication of substance-induced condition: uncomplicated Qualified Code(s): F10.930 - Alcohol use, unspecified with withdrawal, uncomplicated Condition: Stable Record reviewed to determine appropriate education?: Yes Instructions: ED Stress React Follow-Up: Stella Jett ARNP [Primary Care Provider] - Prescriptions: LORazepam [Ativan] 1 mg PO Q6H PRN #20 tablet PRN Reason: Alcohol Withdrawal PHENobarbitaL [Phenobarbital] 30 mg PO BID 6 Days #9 tablet Comments: To help in combination for both your anxiety to the due to recent social stress as well as the alcohol withdrawal symptoms, we can use a combination of phenobarbital twice daily for 3 days then once daily for 3 days as well as intermittent lorazepam every 6-8 hours if needed for withdrawal or anxiety in addition. The lorazepam can be used at night to help with sleep as well. Is any prescriptions to [facility] in [place]. Continue your other usual medications. Discharge Date/Time: 07/26/22 08:41
== END 2022-07-26 08:41 | disposition home or self-care (01) ==
LOC: ED 07:32
DX: F43.0 Acute stress reaction (principal); F41.1 Generalized anxiety disorder; F10.930 Alcohol use, unspecified with withdrawal, uncomplicated; F17.200 Nicotine dependence, unspecified, uncomplicated
CPT/HCPCS: 99282; 99283

== ENCOUNTER 2022-08-09 22:52 | Outpatient (CLI) | payer MEDICARE, MEDICAID | END 2022-08-09 22:53 | disposition short-term general hospital (02) | LOC: EMS 22:52 | DX: S09.90XA Unspecified injury of head, initial encounter (principal); R41.82 Altered mental status, unspecified; S79.912A Unspecified injury of left hip, initial encounter; S99.912A Unspecified injury of left ankle, initial encounter; V48.5XXA Car driver injured in noncollision transport accident in traffic accident, initial encounter; Y92.413 State road as the place of occurrence of the external cause; Z72.89 Other problems related to lifestyle | CPT/HCPCS: A0425; A0427 ==

== ENCOUNTER 2022-08-14 12:46 | Emergency (ER) | payer MEDICARE, MEDICAID ==
[2022-08-14 13:36] VITALS: BP 145/75
--- OUTSIDE RECORDS SUMMARY | 2022-08-14 13:44 | EXTERNAL MEDICAL SUMMARY RPT | Continuity of Care Document ---
:1975 Author Organization [facility] Address [address] [place] [address] Phone Care Team Providers Name Role Phone Unavailable Unavailable Unavailable Stella Mari Unavailable Unavailable Allergies No information. Encounters No information. Functional Status No information. Immunizations No information. Medications date description facility 2022-06-17 00:00 fluoxetine [facility] [place] 2022-05-29 00:00 benzonatate [facility] 2022-06-17 00:00 trazodone [facility] [place] 2022-05-29 00:00 benzonatate [facility] [place] 2022-06-17 00:00 fluoxetine [facility] [place] 2022-06-17 00:00 aripiprazole [facility] [place] 2022-06-17 00:00 aripiprazole [facility] [place] 2022-05-29 00:00 benzonatate [facility] [place] 2022-06-17 00:00 fluoxetine [facility] [place] 2022-06-17 00:00 trazodone [facility] [place] 2022-06-17 00:00 trazodone [facility] [place] 2022-06-17 00:00 fluoxetine [facility] [place] 2022-06-17 00:00 aripiprazole [facility] [place] 2022-05-29 00:00 benzonatate [facility] [place] 2022-06-17 00:00 aripiprazole [facility] [place] 2022-06-17 00:00 trazodone [facility] Problems date description facility 2022-05-29 00:00 Pain in throat [facility] [place] 2022-05-29 00:00 Acute pharyngitis [facility] [place] 2022-05-29 00:00 Pulmonary congestion [facility] [place] 2022-05-29 00:00 Other symptoms involving [facility] respiratory system and chest [facility] [place] 2022-05-29 00:00 Acute pharyngitis, unspecified [facility] [place] 2022-05-29 00:00 Other specified symptoms and signs [facility] & involving the circulatory and [facility] [place] respiratory systems 2022-06-17 00:00 History of risk factor for [facility] suicide [facility] [place] 2022-06-17 00:00 Personal history of suicidal [facility] behavior [facility] Procedures date description facility 2022-05-29 00:00 Visit Code Hold [facility] [place] 2022-06-17 00:00 Visit Code Hold [facility] [place] 2022-05-29 00:00 Throat Culture [facility] [place] 2022-05-29 00:00 POC STREP TEST [facility] [place] 2022-05-29 00:00 COVID19 Testing [facility] [place] Results/Labs test date author facility value unit interpret ation Result panel 1 (unknown) (no date) (unknown) [facility] (no value) [facility]units [facility] Result panel 2 (unknown) (no date) (unknown) [facility] (no value) (units ([facility] Result panel 3 (unknown) (no date) (unknown) [facility] (no value) (units ([facility]own[facility] Clinic [facility] Result panel 4 (unknown) (no date) (unknown) [facility] (no value) (units ([facility] nown[facility] Clinic [facility] unknown[facility] Result panel 5 (unknown) (no date) (unknown) [facility] (no value) (units ([facility] Result panel 6 (unknown) (no date) (unknown) [facility] (no value) (units ([facility] Result panel 7 (unknown) (no date) (unknown) [facility] (no value) (units ([facility] n[facility] Social History date description facility 2022-05-29 00:00 Current every day smoker [facility] [place] 2022-06-17 00:00 Current every day smoker [facility] [place] Vital Signs date measurement value units 2022-05-29 00:00 BMI 30.11 kg/m2 2022-05-29 00:00 BP_diastolic 84 mmHg 2022-05-29 00:00 BP_systolic 126 mmHg 2022-05-29 00:00 heart_rate 81 /min 2022-05-29 00:00 height_metric 170.81 cm 2022-05-29 00:00 height_standard 67.25 in 2022-05-29 00:00 respiration_rate 16 /min 2022-05-29 00:00 weight_metric 87.54 kg 2022-05-29 00:00 weight_standard 193 lb 2022-06-17 00:00 BMI 30.58 kg/m2 2022-06-17 00:00 BP_diastolic 76 mmHg 2022-06-17 00:00 BP_systolic 121 mmHg 2022-06-17 00:00 heart_rate 85 /min 2022-06-17 00:00 height_metric 170.81 cm 2022-06-17 00:00 height_standard 67.25 in 2022-06-17 00:00 respiration_rate 12 /min 2022-06-17 00:00 temperature_metric 36.89 C 2022-06-17 00:00 temperature_standard 98.4 F 2022-06-17 00:00 weight_metric 88.9 kg 2022-06-17 00:00 weight_standard 196 lb
[2022-08-14 13:55] LABS: BASOPHILS # (AUTO) 0.1 10^3/uL (0.0-0.1); BASOPHILS % (AUTO) 0.5 %; EOSINOPHILS # (AUTO) 0.3 10^3/uL (0.0-0.7); EOSINOPHILS % (AUTO) 2.4 %; HCT - HEMATOCRIT 41.8 % (37.0-47.0); HGB - HEMOGLOBIN 13.5 g/dL (12.0-16.0); LYMPHOCYTES # (AUTO) 2.4 10^3/uL (1.5-3.5); LYMPHOCYTES % (AUTO) 21.6 %; MEAN CORPUSCULAR HEMOGLOBIN 30.9 pg (27.0-31.0); MEAN CORPUSCULAR HGB CONC 32.3 g/dL (32.0-36.0); MEAN CORPUSCULAR VOLUME 95.7 fL (81.0-99.0); MEAN PLATELET VOLUME 9.8 fL (7.9-10.8); MONOCYTES # (AUTO) 0.7 10^3/uL (0.0-1.0); MONOCYTES % (AUTO) 6.5 %; NEUTROPHILS # (AUTO) 7.7 10^3/uL (1.5-6.6); NEUTROPHILS % (AUTO) 68.6 %; PLT - PLATELET COUNT 428 10^3/uL (130-450); RED BLOOD COUNT 4.37 10^6/uL (4.20-5.40); RED CELL DISTRIBUTION WIDTH 15.2 % (12.0-15.0); WHITE BLOOD COUNT 11.2 x10^3/uL (4.8-10.8)
[2022-08-14 14:11] LABS: ACETAMINOPHEN < 10 ug/mL (10-30); ALBUMIN 3.8 g/dL (3.2-5.5); ALBUMIN/GLOBULIN RATIO 1.1 (1.0-2.2); ALKALINE PHOSPHATASE 37 IU/L (42-121); ALT ALANINE AMINOTRANSFERASE 17 IU/L (10-60); AST ASPARTATE AMINOTRANSFERASE 17 IU/L (10-42); BILIRUBIN,TOTAL 0.5 mg/dL (0.2-1.0); BUN - BLOOD UREA NITROGEN 11 mg/dL (6-20); CALCIUM 9.4 mg/dL (8.5-10.3); CARBON DIOXIDE - CO2 24 mmol/L (21-32); CHLORIDE 102 mmol/L (101-111); CREATININE 0.8 mg/dL (0.4-1.0); ETOH - ETHANOL < 5.0 mg/dL; GFR - MDRD 78 (>89); GLUCOSE 109 mg/dL (70-100); LIPASE 30 U/L (22-51); SALICYLATE < 6.0 mg/dL; SODIUM 133 mmol/L (135-145); TOTAL PROTEIN 7.2 g/dL (6.7-8.2)
[2022-08-14 14:19] LABS: MUDS CUTOFF CONCENTRATIONS CUTOFF CONC BELOW:
[2022-08-14 14:22] LABS: BILIRUBIN,URINE NEGATIVE (NEGATIVE); GLUCOSE, URINE (UA) NEGATIVE (NEGATIVE); KETONES,URINE (UA) NEGATIVE (NEGATIVE); LEUKOCYTE ESTERASE, URINE NEGATIVE (NEGATIVE); NITRITE,URINE NEGATIVE (NEGATIVE); OCCULT BLOOD,URINE SMALL (NEGATIVE); PROTEIN,URINE NEGATIVE (NEGATIVE); UROBILINOGEN,URINE 0.2 (NORMAL) E.U./dL (NORMAL)
[2022-08-14 14:24] LABS: CLARITY,URINE CLEAR (CLEAR)
[2022-08-14 14:25] LABS: HCG UR QUAL NEGATIVE
[2022-08-14 14:31] LABS: BACTERIA,URINE None Seen /HPF (None Seen); RBC,URINE 0-5 /HPF (0-5); SQUAMOUS EPITHELIAL CELL,UR NONE SEEN (<= Few); WBC,URINE 0-3 /HPF (0-5)
[2022-08-14 14:32] LABS: AMPHETAMINE SCREEN,URINE NEGATIVE (NEGATIVE); BARBITURATE SCREEN,UR NEGATIVE (NEGATIVE); BENZODIAZEPINES SCREEN, URINE POSITIVE (NEGATIVE); COCAINE SCREEN URINE NEGATIVE (NEGATIVE); METHADONE SCREEN, URINE NEGATIVE (NEGATIVE); METHAMPHETAMINES SCREEN, URINE NEGATIVE (NEGATIVE); OPIATE SCREEN, URINE NEGATIVE (NEGATIVE); OXYCODONE SCREEN, URINE NEGATIVE (NEGATIVE); PROPOXYPHENE SCREEN, URINE NEGATIVE (NEGATIVE); THC CANNABINOID SCREEN, URINE NEGATIVE (NEGATIVE); TRICYCLIC ANTIDEPRESSANT,URINE NEGATIVE (NEGATIVE)
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
[2022-08-14] MEDS ORDERED: IBUPROFEN 800 MG TABLET PO STA (16:19)
[2022-08-14] MEDS ORDERED: NICOTINE 21 MG PATCH TOP STA (17:32)
== END 2022-08-14 19:13 | disposition left against medical advice (07) ==
LOC: ED 12:46
DX: R45.851 Suicidal ideations (principal); F32.2 Major depressive disorder, single episode, severe without psychotic features; F17.200 Nicotine dependence, unspecified, uncomplicated; Z20.822 Contact with and (suspected) exposure to COVID-19
CPT/HCPCS: 36415; 80053; 80306; 80307; 81001; 81025; 83690; 84443; 85025; 87635; 99282; 99283; A9270; G0480; 80320; 80329; 81003; 87086

== ENCOUNTER 2023-01-14 11:05 | Outpatient (CLI) | payer MEDICARE, MEDICAID ==
[2023-01-14 14:49] LABS: BASOPHILS # (AUTO) 0.1 10^3/uL (0.0-0.1); BASOPHILS % (AUTO) 0.3 %; EOSINOPHILS % (AUTO) 0.1 %; HCT - HEMATOCRIT 44.4 % (37.0-47.0); HGB - HEMOGLOBIN 14.7 g/dL (12.0-16.0); LYMPHOCYTES # (AUTO) 2.5 10^3/uL (1.5-3.5); LYMPHOCYTES % (AUTO) 15.5 %; MEAN CORPUSCULAR HEMOGLOBIN 32.7 pg (27.0-31.0); MEAN CORPUSCULAR HGB CONC 33.1 g/dL (32.0-36.0); MEAN CORPUSCULAR VOLUME 98.7 fL (81.0-99.0); MEAN PLATELET VOLUME 10.6 fL (7.9-10.8); MONOCYTES # (AUTO) 1.1 10^3/uL (0.0-1.0); MONOCYTES % (AUTO) 7.1 %; NEUTROPHILS # (AUTO) 12.1 10^3/uL (1.5-6.6); NEUTROPHILS % (AUTO) 76.6 %; PLT - PLATELET COUNT 433 10^3/uL (130-450); RED CELL DISTRIBUTION WIDTH 16.3 % (12.0-15.0); WHITE BLOOD COUNT 15.8 x10^3/uL (4.8-10.8)
[2023-01-14 15:28] LABS: ALBUMIN 3.7 g/dL (3.2-5.5); BILIRUBIN,TOTAL 0.4 mg/dL (0.2-1.0); CALCIUM 9.2 mg/dL (8.5-10.3); TOTAL PROTEIN 7.3 g/dL (6.7-8.2)
[2023-01-14 15:50] LABS: THYROID STIMULATING HORMONE 2.69 uIU/mL (0.34-5.60)
== END 2023-01-14 11:06 | disposition home or self-care (01) ==
LOC: LAB.S 11:05
PROVIDERS: ATTEND Registered Nurse
DX: R21 Rash and other nonspecific skin eruption (principal); R20.2 Paresthesia of skin; R07.0 Pain in throat
CPT/HCPCS: 36415; 80053; 84443; 85025

== ENCOUNTER 2023-01-15 14:50 | Outpatient (CLI) | payer MEDICAID, MEDICARE ==
[2023-01-17 09:11] LABS: VARICELLA-ZOSTER AB IGG 1791 index (Immune >165)
[2023-01-18 13:09] LABS: VARICELLA-ZOSTER AB IGM <0.91 index (0.00-0.90)
== END 2023-01-15 14:51 | disposition home or self-care (01) ==
LOC: LAB.S 14:50
PROVIDERS: ATTEND Registered Nurse
DX: R21 Rash and other nonspecific skin eruption (principal); R20.2 Paresthesia of skin; R07.0 Pain in throat
CPT/HCPCS: 86787

== ENCOUNTER 2023-01-17 06:36 | Emergency (ER) | payer MEDICAID, MEDICARE ==
[2023-01-17 07:01] VITALS: BP 133/73
--- NOTE | 2023-01-17 07:18 | ED Physician Documentation ---
History of Present Illness - Stated complaint Stated Complaint: SWOLLEN LIP - Chief complaint Chief Complaint: Heent - Additonal information Additional information: Right-sided facial swelling. Past medical significant for bipolar disorder, anxiety, depression. Presents symptoms ongoing x3 days. Reports was initially seen in the walk-in clinic and started on course of Medrol Dosepak and prescribed Bactrim however was later told to discontinue her Bactrim and has not been taking any medications. She states that she was told that She was "having an allergic reaction to olanzapine". She denies fevers, chills, painful swallowing or muffled voice. Reports feeling as though there is "pus in my mouth". 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: None : Incontinence HEENT: None Psych: Depression, Anxiety, Bipolar disorder, Panic attacks Musculoskeletal: None Derm: None - Past Surgical History Past Surgical History: No /TECHNICAL ADMINISTRATIVE ASSISTANT: section - Present Medications Home Medications: Ambulatory Orders Medication Instructions Recorded Confirmed Fluoxetine HCl 40 mg PO DAILY 03/22/18 02/11/22 hydrOXYzine HCL [Hydroxyzine HCl] 1 tab TID PRN 06/30/18 02/11/22 ARIPiprazole [Abilify Mycite] 30 mg PO DAILY 02/11/22 02/11/22 Acetaminophen [Tylenol] 2 tab PO TID PRN 02/11/22 02/11/22 [place] Carbonate 3 cap PO HS 02/11/22 02/11/22 Quetiapine Fumarate [Seroquel] 100 mg PO MAINTENANCE.IV 02/11/22 02/11/22 Amox/Clav 875/125 [Augmentin] 1 each PO Q12H #20 tablet 05/19/22 HYDROcod/ACETAM 5/325 [[place] 5/325] 1 tab PO BID PRN #8 tablet 05/19/22 LORazepam [Ativan] 1 mg PO Q6H PRN #20 tablet 07/26/22 PHENobarbitaL [Phenobarbital] 30 mg PO BID 6 Days #9 tablet 07/26/22 Amox/Clav 875/125 [Augmentin] 1 tab PO Q12H #20 tablet 01/17/23 - Allergies Allergies/Adverse Reactions: Allergies Allergy/AdvReac Type Severity Reaction Status Date / Time No Known Drug Allergies Allergy Verified 08/14/22 13:36 - Social History Does the pt smoke?: Yes Smoking Status: Current every day smoker Does the pt drink ETOH?: No Does the pt have substance abuse?: Yes - Immunizations Immunizations are current?: Yes - POLST Patient has POLST: No PD ED PE NORMAL - General General: Alert and oriented X 3 - HEENT HEENT: Atraumatic, Other (There are obvious caries, including one prominent carry to the right lower third molar. There is induration noted to the right anterior cheek. There is no uvular deviation, sublingual elevation or tracheal immobility.) Results - Vitals Vitals: Vital Signs - 24 hr 01/17/23 06:53 Temperature 36.8 C Heart Rate 86 Respiratory 19 Rate Blood Pressure 133/73 H O2 Saturation 100 Oxygen O2 Source Room air PD Medical Decision Making - ED course Complexity details: considered differential, d/w patient ED course: Patient is 47-year-old female presenting today with right-sided facial swelling. Right lower cheek swelling noted on arrival with obvious dental caries and some tenderness along the lower anterior mandible. No palpable apical abscess or indications of deep space neck infection on exam. Patient was initially started on a course of Bactrim but has not been taking this medication as she was told at a walk-in clinic that this was an allergic reaction. She was started on a Medrol Dosepak. There is induration but no palpable fluctuance or abscess that I can appreciate on exam. I will initiate a course of Augmentin here in the emergency department for optimal coverage for dental pathogens. I will encourage careful follow-up with dentistry or return to the emergency department and 36-48 hours if there is no improvement of symptoms. Departure - Departure Disposition: 01 Home, Self Care Clinical Impression: Dental infection Instructions: ED Abscess Dental Prescriptions: Amox/Clav 875/125 [Augmentin] 1 tab PO Q12H #20 tablet Comments: Thank you for allowing us to care for you today would be general. Prescription sent to [facility] in [place]. Today in the emergency department you are diagnosed with a dental infection. As we discussed I like you to begin a course of oral antibiotics. I recommend increasing your intake and fiber full foods and natural probiotics while on antibiotics. Please continue to take your previously prescribed Medrol Dosepak as this will help with swelling. I do recommend regular use of [id number] ibuprofen and acetaminophen for pain control as well as ice packs to the area of swelling along your right cheek. It is very important that you follow-up with a dentist. Please contact 1 today in order to make a follow-up appointment. Your symptoms should be improving over the course of the next 36 to 48 hours. If it anytime they worsen or if you are not experiencing improvement on antibiotics please return to the emergency department for reevaluation.
[2023-01-17] MEDS ORDERED: AMOX/CLAV 875 MG/125 MG TABLET PO STA (07:19)
[2023-01-17] MEDS ORDERED: HYDROcod/ACETAM 5/325 MG TABLET PO STA (07:19)
== END 2023-01-17 07:41 | disposition home or self-care (01) ==
LOC: ED 06:36
DX: K04.7 Periapical abscess without sinus (principal); F17.200 Nicotine dependence, unspecified, uncomplicated; Z79.899 Other long term (current) drug therapy
CPT/HCPCS: 99282; 99283; A9270

== ENCOUNTER 2023-01-19 10:41 | Emergency (ER) | payer MEDICARE ==
[2023-01-19 10:55] VITALS: BP 142/79
--- NOTE | 2023-01-19 11:00 | ED Physician Documentation ---
History of Present Illness - Stated complaint Stated Complaint: RT FACE BURNING/SWELL - Chief complaint Chief Complaint: Heent - History obtained from History obtained from: Patient - Additonal information Additional information: 47-year-old female with past medical history as listed below significant for bipolar disorder, she vapes, and was seen 2 days ago for a possible dental infection. She had some right facial swelling and pain. She was actually seen several days prior to that in the clinic and started on Bactrim but then this was subsequently stopped because it was thought this may be an allergic reaction. She was seen 2 days ago and started on Augmentin and this has not Given her any improvement. She has a burning soreness on the inside of the right cheek but denies any dental pain, and has not had any facial swelling, no fever. She has no difficulty swallowing or managing secretions. She cannot eat however due to the pain that is caused when anything touches her oral mucosa. 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: None : Incontinence HEENT: None Psych: Depression, Anxiety, Bipolar disorder, Panic attacks Musculoskeletal: None Derm: None - Past Surgical History Past Surgical History: No /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 - Present Medications Home Medications: Ambulatory Orders Medication Instructions Recorded Confirmed Fluoxetine HCl 40 mg PO DAILY 03/22/18 02/11/22 hydrOXYzine HCL [Hydroxyzine HCl] 1 tab TID PRN 06/30/18 02/11/22 ARIPiprazole [Abilify Mycite] 30 mg PO DAILY 02/11/22 02/11/22 Acetaminophen [Tylenol] 2 tab PO TID PRN 02/11/22 02/11/22 [place] Carbonate 3 cap PO HS 02/11/22 02/11/22 Quetiapine Fumarate [Seroquel] 100 mg PO MAINTENANCE.IV 02/11/22 02/11/22 Amox/Clav 875/125 [Augmentin] 1 each PO Q12H #20 tablet 05/19/22 HYDROcod/ACETAM 5/325 [[place] 5/325] 1 tab PO BID PRN #8 tablet 05/19/22 LORazepam [Ativan] 1 mg PO Q6H PRN #20 tablet 07/26/22 PHENobarbitaL [Phenobarbital] 30 mg PO BID 6 Days #9 tablet 07/26/22 Amox/Clav 875/125 [Augmentin] 1 tab PO Q12H #20 tablet 01/17/23 HYDROcod/ACETAM 5/325 [[place] 5/325] 1 tablet PO Q6H PRN #6 tablet 01/19/23 Ibuprofen [Motrin] 1 tablet PO Q8H PRN #30 tablet 01/19/23 Magic Mouthwash 30 ml PO Q4H #120 ml 01/19/23 Valacyclovir HCl [Valtrex] 1,000 mg PO BID #14 tablet 01/19/23 - Allergies Allergies/Adverse Reactions: Allergies Allergy/AdvReac Type Severity Reaction Status Date / Time No Known Drug Allergies Allergy Verified 01/19/23 10:50 - Social History Does the pt smoke?: Yes Smoking Status: Current every day smoker Does the pt drink ETOH?: No Does the pt have substance abuse?: Yes - Immunizations Immunizations are current?: Yes - POLST Patient has POLST: No PD ED PE NORMAL - Vitals Vital signs reviewed: Yes - General General: Alert and oriented X 3, No acute distress, Well developed/nourished - HEENT HEENT: Atraumatic, Pharynx benign, Other (There is a large flat lesion on the inner mucosa of the right cheek that is extremely tender to touch, there is no induration or fluctuance. There is some bleeding and scabbing of the upper and lower lip on the right side.No other oral lesions. She has some dental caries but no visible dental absc) - Neck Neck: Supple, no meningeal sign, No adenopathy - Cardiac Cardiac: RRR, No murmur - Respiratory Respiratory: No respiratory distress, Clear bilaterally - Derm Derm: Normal color, Warm and dry Results - Vitals Vitals: Vital Signs - 24 hr 01/19/23 10:50 Temperature 36.5 C Heart Rate 85 Respiratory 16 Rate Blood Pressure 142/79 H O2 Saturation 100 Oxygen O2 Source Room air PD Medical Decision Making - ED course Complexity details: considered differential, d/w patient, d/w family ED course: 47-year-old female presents with ongoing oral pain. She is being currently treated for possible dental abscess however on physical exam today, she has some flat ulcerations on the right cheek which are likely herpetic in nature and likely the cause of her symptoms. She has no signs of dental abscess or other facial abscess. Recommended that we start valacyclovir though given the duration of her symptoms it may not provide much immediate relief, and she was also given Magic mouthwash, ibuprofen and a dose of [place]. I discussed with patient that this will resolve but can take 7 to 10 days if not longer on initial ulceration. She was advised on supportive measures including cool drinks, avoiding any citrusy or acidic or spicy foods which will cause increased pain, trying to eat on the other side of the mouth. I did advise follow-up with her PCP within the next week or so to evaluate for improvement. Departure - Departure Disposition: 01 Home, Self Care Clinical Impression: Herpes virus infection of oral mucosa Condition: Good Instructions: ED Herpes Simplex Virus Type 1 Prescriptions: Magic Mouthwash 30 ml PO Q4H #120 ml Ibuprofen [Motrin] 1 tablet PO Q8H PRN #30 tablet PRN Reason: PAIN &/OR FEVER HYDROcod/ACETAM 5/325 [[place] 5/325] 1 tablet PO Q6H PRN #6 tablet PRN Reason: Pain Valacyclovir HCl [Valtrex] 1,000 mg PO BID #14 tablet Comments: Please continue the antibiotics you are already prescribed have a suspect that this is a viral herpetic infection of your oral mucosa. This is can be extremely painful but will improve, typically on its own, in about 7-10 days. I have prescribed an antiviral for you to take twice a day for the next 7 days and some mouthwash to help numb the area. Take ibuprofen for pain but if you have pain that is not relieved by this, you can take a dose of hydrocodone as previously prescribed.
[2023-01-19] MEDS ORDERED: valACYclovir 500 MG TABLET PO SCH (11:27)
[2023-01-19] MEDS ORDERED: IBUPROFEN 600 MG TABLET PO STA (11:41)
[2023-01-19] MEDS ORDERED: HYDROcod/ACETAM 5/325 MG TABLET PO STA (11:41)
[2023-01-19] MEDS ORDERED: MAGIC MOUTHWASH 120 ML BOTTLE PO STA (11:42)
[2023-01-19] MEDS ORDERED: valACYclovir 500 MG TABLET PO ONE (11:43)
== END 2023-01-19 12:16 | disposition home or self-care (01) ==
LOC: ED 10:41
DX: B00.2 Herpesviral gingivostomatitis and pharyngotonsillitis (principal); F17.200 Nicotine dependence, unspecified, uncomplicated
CPT/HCPCS: 99282; 99283; A9270

== ENCOUNTER 2023-06-27 06:15 | Outpatient (CLI) | payer MEDICARE, MEDICAID | END 2023-06-27 06:16 | disposition critical access hospital (66) | LOC: EMS 06:15 | DX: R07.81 Pleurodynia (principal); R07.89 Other chest pain; R07.1 Chest pain on breathing; Y04.8XXA Assault by other bodily force, initial encounter; Y92.019 Unspecified place in single-family (private) house as the place of occurrence of the external cause | CPT/HCPCS: A0425; A0429 ==

== ENCOUNTER 2023-06-27 06:46 | Emergency (ER) | payer MEDICARE, MEDICAID ==
[2023-06-27 07:06] VITALS: BP 144/97; O2SAT 98
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
[2023-06-27 07:47] LABS: BILIRUBIN,URINE NEGATIVE (NEGATIVE); GLUCOSE, URINE (UA) NEGATIVE (NEGATIVE); KETONES,URINE (UA) NEGATIVE (NEGATIVE); LEUKOCYTE ESTERASE, URINE NEGATIVE (NEGATIVE); NITRITE,URINE NEGATIVE (NEGATIVE); OCCULT BLOOD,URINE SMALL (NEGATIVE); PROTEIN,URINE NEGATIVE (NEGATIVE); UROBILINOGEN,URINE 0.2 (NORMAL) E.U./dL (NORMAL)
[2023-06-27 07:50] LABS: CLARITY,URINE CLEAR (CLEAR); HCG UR QUAL NEGATIVE
[2023-06-27 08:02] LABS: RBC,URINE 0-5 /HPF (0-5); SQUAMOUS EPITHELIAL CELL,UR FEW Squamous (<= Few); WBC,URINE 0-3 /HPF (0-5)
[2023-06-27 08:03] LABS: BACTERIA,URINE Rare /HPF (None Seen)
== END 2023-06-27 07:43 | disposition home or self-care (01) ==
LOC: EDUNIT# → ED 06:46
DX: Z02.89 Encounter for other administrative examinations (principal); S40.021A Contusion of right upper arm, initial encounter; S20.212A Contusion of left front wall of thorax, initial encounter; Y04.2XXA Assault by strike against or bumped into by another person, initial encounter; F17.200 Nicotine dependence, unspecified, uncomplicated
CPT/HCPCS: 81001; 81003; 81025; 87086; 99283

== ENCOUNTER 2023-07-09 04:58 | Outpatient (CLI) | payer MEDICARE | END 2023-07-09 04:59 | disposition critical access hospital (66) | LOC: EMS 04:58 | DX: R07.1 Chest pain on breathing (principal); R07.81 Pleurodynia; M79.621 Pain in right upper arm; R20.0 Anesthesia of skin; Y04.2XXA Assault by strike against or bumped into by another person, initial encounter | CPT/HCPCS: A0425; A0429 ==

== ENCOUNTER 2023-07-09 05:29 | Emergency (ER) | payer MEDICAID, MEDICARE ==
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
[2023-07-09] MEDS ORDERED: HYDROcod/ACETAM 5/325 MG TABLET PO STA (07:20)
[2023-07-09 07:44] VITALS: BP 123/83; O2SAT 99
--- NOTE | 2023-07-09 08:24 | XRAY Report ---
PROCEDURE: Ribs w/PA Chest LT INDICATIONS: injury TECHNIQUE: 2 views of the left ribs were acquired, along with a single view chest. COMPARISON: None. FINDINGS: Surgical changes and devices: None. Bones and chest wall: Slightly displaced fractures involving left anterolateral seventh and eighth r ibs is seen. No suspicious bony lesions. Overlying soft tissues appear unremarkable. Lungs and pleura: No pleural effusions or pneumothorax. Left basilar small infiltrate/atelectasis ve rsus contusion is seen. Mediastinum: Mediastinal contours appear normal. Heart size is normal. IMPRESSION: 1. Slightly displaced left anterolateral seventh and eighth rib fractures with adjacent atelectasis/c ontusion in left lower lobe. No pneumothorax or significant pleural effusion. No discrepancies from pulmonary reading. Reviewed by: Louie Terry MD on 07/09/2023 8:22 AM PST Approved by: Louie Terry MD on 07/09/2023 8:22 AM PST Station ID: [id number]
--- NOTE | 2023-07-09 08:25 | XRAY Report ---
PROCEDURE: Elbow 3 View RT INDICATIONS: injury TECHNIQUE: 3 views of the elbow were acquired. COMPARISON: None. FINDINGS: Bones: No fractures or dislocations. No suspicious bony lesions. Soft tissues: No effusion. No suspicious soft tissue calcifications or masses. IMPRESSION: No acute bony abnormality. Findings are concordant with preliminary interpretation provided by [facility]. Reviewed by: Louie Terry MD on 07/09/2023 8:24 AM [facility] Approved by: Louie Terry MD on 07/09/2023 8:24 AM PST Station ID: [id number]
== END 2023-07-09 07:55 | disposition home or self-care (01) ==
LOC: EDUNIT# → ED 05:29
DX: S22.42XA Multiple fractures of ribs, left side, initial encounter for closed fracture (principal); S50.01XA Contusion of right elbow, initial encounter; Y09 Assault by unspecified means; F17.200 Nicotine dependence, unspecified, uncomplicated; Z79.899 Other long term (current) drug therapy
CPT/HCPCS: 71101; 73080; 99283; A9270

== ENCOUNTER 2023-07-14 03:30 | Emergency (ER) | payer MEDICARE ==
--- NOTE | 2023-07-14 03:31 | ED Physician Documentation ---
History of Present Illness - Stated complaint Stated Complaint: FIT - History obtained from History obtained from: Patient, Police - Additonal information Additional information: 48-year-old female with history of bipolar disorder presents for evaluation prior to going to long term. Patient told law enforcement officers that she had suffered a miscarriage in long term but was never evaluated and so she was brought here to the ER for evaluation. Patient was seen on 06/27 prior to going to long term and had a negative test at that time. She returned to the emergency department 07/09/23 after being discharged from long term for rib and elbow pain but did not mention anything about a miscarriage. There was no repeat test at that time, and x-rays show 2 rib fractures. Patient was subsequently discharged home. Patient states that she was 5 weeks when she miscarried in long term. 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 Carbonate 300 mg PO TID 02/11/22 07/14/23 Quetiapine Fumarate [Seroquel] 100 mg PO DAILY 02/11/22 07/14/23 Albuterol Sulf [Ventolin Hfa 1 - 2 puffs INH Q4HR PRN #1 each 05/03/23 07/14/23 Inhaler] HYDROcod/ACETAM 5/325 [[place] 5/325] 1 tablet PO Q6H PRN #14 tablet 07/09/23 07/14/23 Lidocaine Patch 5% [Lidoderm Patch] 1 patch TOP DAILY PRN #10 patch 07/09/23 07/14/23 Propranolol [Inderal] 20 tab PO Q6HR 07/14/23 07/14/23 Valacyclovir HCl [Valtrex] 1,000 mg PO TID 07/14/23 07/14/23 traZODone [Desyrel] 50 mg PO HS 07/14/23 07/14/23 - Allergies Allergies/Adverse Reactions: Allergies Allergy/AdvReac Type Severity Reaction Status Date / Time No Known Drug Allergies Allergy Verified 07/09/23 05:39 - Social History Does the pt smoke?: Yes Smoking Status: Current every day smoker Does the pt drink ETOH?: No Does the pt have substance abuse?: No - Immunizations Immunizations are current?: Yes - POLST Patient has POLST: No PD ED PE NORMAL - Vitals Vital signs reviewed: Yes - General General: Alert and oriented X 3, Well developed/nourished, Other (disheveled) - HEENT HEENT: Atraumatic - Neck Neck: Supple, no meningeal sign - Cardiac Cardiac: RRR - Respiratory Respiratory: No respiratory distress - Abdomen Abdomen: Soft, Non tender, Non distended - Derm Derm: Normal color, Warm and dry, No rash - Extremities Extremities: No deformity, Normal ROM s pain - Neuro Neuro: Alert and oriented X 3, optical worker 2-12 intact, No motor deficit, Normal speech - Psych Psych: Other (pressured speech, poor insight) Results - Vitals Vitals: Vital Signs - 24 hr 07/14/23 03:30 Temperature 36.1 C L Heart Rate 93 Respiratory 16 Rate Blood Pressure 128/79 O2 Saturation 96 Oxygen O2 Source Room air PD Medical Decision Making - ED course Complexity details: reviewed old records, reviewed results, re-evaluated patient, considered differential, d/w patient, other (d/w police) ED course: Patient presenting stating that she had a miscarriage at 5 weeks in long term. Patient was seen 06/27 and had a negative test at that time prior to being sent to long term. Repeat test on 07/14 also negative. Patient is not and it is highly unlikely that she has miscarried. Patient has no other complaints. Medically cleared for discharge to long term. Departure - Departure Disposition: 01 Home, Self Care Clinical Impression: Negative test, Encounter for medical assessment Condition: Stable Instructions: Bipolar Disorder
[2023-07-14 03:47] VITALS: BP 128/79; O2SAT 96
[2023-07-14] MEDS ORDERED: ONDANSETRON ODT 4 MG TABLET TL STA (03:56)
[2023-07-14 04:03] LABS: BILIRUBIN,URINE NEGATIVE (NEGATIVE); GLUCOSE, URINE (UA) NEGATIVE (NEGATIVE); KETONES,URINE (UA) NEGATIVE (NEGATIVE); LEUKOCYTE ESTERASE, URINE NEGATIVE (NEGATIVE); NITRITE,URINE NEGATIVE (NEGATIVE); OCCULT BLOOD,URINE TRACE-INTA (NEGATIVE); PH,URINE 5.5 PH (5.0-7.5); PROTEIN,URINE NEGATIVE (NEGATIVE); UROBILINOGEN,URINE 0.2 (NORMAL) E.U./dL (NORMAL)
[2023-07-14 04:17] LABS: CLARITY,URINE CLEAR (CLEAR); HCG UR QUAL NEGATIVE
== END 2023-07-14 04:05 | disposition home or self-care (01) ==
LOC: ED 03:30
DX: Z02.89 Encounter for other administrative examinations (principal); F17.200 Nicotine dependence, unspecified, uncomplicated
CPT/HCPCS: 81003; 81025; 99282; 99283; Q0162; 81001; 87086

== ENCOUNTER 2023-07-25 14:03 | Emergency (ER) | payer MEDICARE ==
[2023-07-25] MEDS ORDERED: ACETAMINOPHEN 325 MG TABLET PO STA (14:06)
[2023-07-25] MEDS ORDERED: ONDANSETRON ODT 4 MG TABLET TL STA (14:06)
[2023-07-25] MEDS ORDERED: IBUPROFEN 400 MG TABLET PO STA (14:06)
--- NOTE | 2023-07-25 14:08 | ED Physician Documentation ---
PD HPI HEAD INJURY - Stated complaint Stated Complaint: FTT - History obtained from History obtained from: Patient, Police - Additional information Additional information: 48-year-old female [facility] the [facility] with law enforcement for evaluation after accidental head injury. Patient was in the yard and slipped on a puddle, falling from standing height onto the back of her head. Patient reports generalized head pain and nausea, but denies loss of consciousness. Patient denies use of blood thinners. There has been no emesis reported by patient, on enforcement, or nursing staff at penitentiary. Review of Systems Constitutional: denies: Fever, Chills Cardiac: denies: Chest pain / pressure, Palpitations Respiratory: denies: Dyspnea, Cough, Wheezing GI: reports: Nausea. denies: Abdominal Pain, Vomiting, Constipation, Diarrhea Skin: denies: Rash, Lesions, Abrasion (s) Musculoskeletal: denies: Neck pain, Back pain, Extremity pain Neurologic: reports: Headache, Head injury. 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 - Present Medications Home Medications: Ambulatory Orders Medication Instructions Recorded Confirmed Fluoxetine HCl 40 mg PO DAILY 03/22/18 07/14/23 hydrOXYzine HCL [Hydroxyzine HCl] 1 tab TID PRN 06/30/18 07/14/23 ARIPiprazole [Abilify Mycite] 30 mg PO DAILY 02/11/22 07/14/23 [place] Carbonate 300 mg PO TID 02/11/22 07/14/23 Quetiapine Fumarate [Seroquel] 100 mg PO DAILY 02/11/22 07/14/23 Albuterol Sulf [Ventolin Hfa 1 - 2 puffs INH Q4HR PRN #1 each 05/03/23 07/14/23 Inhaler] HYDROcod/ACETAM 5/325 [[place] 5/325] 1 tablet PO Q6H PRN #14 tablet 07/09/23 07/14/23 Lidocaine Patch 5% [Lidoderm Patch] 1 patch TOP DAILY PRN #10 patch 07/09/23 07/14/23 Propranolol [Inderal] 20 tab PO Q6HR 07/14/23 07/14/23 Valacyclovir HCl [Valtrex] 1,000 mg PO TID 07/14/23 07/14/23 traZODone [Desyrel] 50 mg PO HS 07/14/23 07/14/23 - Allergies Allergies/Adverse Reactions: Allergies Allergy/AdvReac Type Severity Reaction Status Date / Time No Known Drug Allergies Allergy Verified 07/09/23 05:39 - Social History Does the pt smoke?: Yes Smoking Status: Current every day smoker Does the pt drink ETOH?: No Does the pt have substance abuse?: No - Immunizations Immunizations are current?: Yes - POLST Patient has POLST: No PD ED PE NORMAL - Vitals Vital signs reviewed: Yes - General General: Alert and oriented X 3, No acute distress, Well developed/nourished - HEENT HEENT: Atraumatic, PERRL, EOMI, Ears normal, Moist mucous membranes, Other (no peters sign, no raccoon eyes, no hemotympanum) - Neck Neck: Supple, no meningeal sign, No bony TTP, C-Spine cleared by NEXUS criteria - Cardiac Cardiac: RRR, Strong equal pulses - Respiratory Respiratory: No respiratory distress, Clear bilaterally - Abdomen Abdomen: Soft, Non tender, Non distended - Derm Derm: Normal color, Warm and dry, No rash, Other (no lacerations, no bleeding) - Extremities Extremities: No deformity, No tenderness to palpate, Normal ROM s pain, No edema - Neuro Neuro: Alert and oriented X 3, edge drummer 2-12 intact, No motor deficit, Normal speech - Psych Psych: Normal mood, Normal affect Results - Vitals Vitals: Vital Signs - 24 hr 07/25/23 14:05 Temperature 36.5 C Heart Rate 51 L Respiratory 17 Rate Blood Pressure 127/63 O2 Saturation 100 Oxygen O2 Source Room air PD Medical Decision Making - ED course Complexity details: reviewed old records, reviewed results, re-evaluated patient, considered differential, d/w patient ED course: Well-appearing patient with accidental head injury. Patient meets no criteria for CT imaging at this time. She is neurologically intact with GCS 15, there has been no vomiting or change in mental status. Given Zofran for nausea, Tyl enol and Motrin given for head pain. Zofran prepack sent with patient if she has nausea back at penitentiary. Patient medically cleared for discharge back to penitentiary. Departure - Departure Disposition: 01 Home, Self Care Clinical Impression: Head injury Qualifiers: Encounter type: initial encounter Qualified Code(s): S09.90XA - Unspecified injury of head, initial encounter Condition: Stable Instructions: ED Head Injury Closed Comments: Take Tylenol Motrin as needed for pain. You may apply ice to your head for pain or swelling. Zofran prepack given for nausea
[2023-07-25] MEDS ORDERED: ONDANSETRON ODT 4 MG Prepack 2 TL STA (14:09)
[2023-07-25 14:17] VITALS: BP 127/63; O2SAT 100
== END 2023-07-25 14:21 | disposition home or self-care (01) ==
LOC: ED 14:03
DX: S09.90XA Unspecified injury of head, initial encounter (principal); W01.0XXA Fall on same level from slipping, tripping and stumbling without subsequent striking against object, initial encounter; Y93.39 Activity, other involving climbing, rappelling and jumping off; Y92.147 Courtyard of prison as the place of occurrence of the external cause; F17.200 Nicotine dependence, unspecified, uncomplicated
CPT/HCPCS: 99282; 99283; A9270; Q0162